=== PATIENT | female | born 1955 | race Caucasian/White ===

== ENCOUNTER 2018-03-17 21:29 | Inpatient (IN) | payer BC ==
[~2018-03-17] VITALS: Ht 177.8 cm; Wt 85.0 kg
--- NOTE | ~2018-03-17 | EKG ---
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
[2018-03-17 22:07] LABS: BASO % 0.3 % (0.0-1.0); HEMATOCRIT 44.4 % (37.0-47.0); HEMOGLOBIN 14.5 g/dl (12.0-16.0); LYMPH # 1.4 10*3/uL (1.3-4.4); LYMPH % 20.6 % (27.0-41.0); MEAN CELL VOLUME 99.1 fl (81.0-99.0); MEAN CORPUSCULAR HGB 32.4 pg (27.0-31.0); MEAN CORPUSCULAR HGB CONC 32.7 g/dl (33.0-37.0); MEAN PLATELET VOLUME 10.7 fl (9.6-12.3); MONO # 0.4 10*3/uL (0.1-1.0); MONO % 5.9 % (3.0-9.0); NEUT # 4.9 10*3/uL (2.3-7.9); NEUT % 72.9 % (47.0-73.0); PLATELET COUNT AUTOMATED 220 10*3/uL (130-400); RED BLOOD COUNT 4.48 10*6/uL (4.10-5.10); RED CELL DISTRI WIDTH 13.2 % (0-14.5); WHITE BLOOD COUNT 6.8 10*3/uL (4.8-10.8)
[2018-03-17 22:11] LABS: BILIRUBIN NEGATIVE (NEGATIVE); BLOOD TRACE-INTACT (NEGATIVE); CLARITY CLEAR (CLEAR); COLOR YELLOW (YELLOW); GLUCOSE NEGATIVE (NEGATIVE); KETONE NEGATIVE (NEGATIVE); LEUKO ESTERASE NEGATIVE (NEGATIVE); NITRITE NEGATIVE (NEGATIVE); SPECIFIC GRAVITY <= 1.005 (1.005-1.030); UROBILINOGEN 0.2 E.U./dl (0.2-1.0)
[2018-03-17 22:20] LABS: ALBUMIN 4.5 gm/dl (3.1-4.5); ALKALINE PHOSPHATASE 80 U/L (45-117); BUN 11 mg/dl (7-24); CHLORIDE 106 mmol/L (98-107); CREATININE 0.72 mg/dL (0.55-1.02); POTASSIUM 3.4 mmol/L (3.5-5.1); SGOT/AST 21 IU/L (3-35); SGPT/ALT 20 U/L (12-78); SODIUM 142 mmol/L (136-145); TOTAL PROTEIN 8.5 gm/dL (6.4-8.2)
[2018-03-17 22:26] LABS: URINE AMPHETAMINES < 1000 (1000ng/ml); URINE BARBITURATES < 200 (200ng/ml); URINE BENZODIAZEPINES < 200 (200ng/ml); URINE CANNABINOIDS (THC) < 50 (50ng/ml); URINE METHADONE < 300 (300ng/ml)
[2018-03-17 22:26] LABS: ACETAMINOPHEN (TYLENOL) < 2.0 ug/ml (10-30); ETHYL ALCOHOL < 3.0 mg/dl (<3)
[2018-03-17 22:29] LABS: URINE COCAINE < 300 (300ng/ml); URINE OPIATES < 300 (300ng/ml)
[2018-03-17 22:31] LABS: BACTERIA TRACE; URINE PHENCYCLIDINE < 25 (25ng/ml); WBC 0-2 wbc/hpf (0-5)
--- NOTE | 2018-03-17 23:27 | NUR ---
PATIENT REFUSES IV AT THIS TIME.
--- NOTE | 2018-03-18 00:11 | NUR ---
1 MG OF DILUADID ADMINISTERED. ADDITIONAL 0.5MG RETURNED TO PYXIS.
[2018-03-18 00:45] VITALS: BP 172/69
--- NOTE | 2018-03-18 00:45 | NUR ---
A 63, admitted to , under the services of DEV Turner DO with a diagnosis of OPIATE WITHDRAWAL. Chief complaint is OPIATE WITHDRAWAL. Patient arrived via wheel chair from ER. Monitor applied. Initial assessment completed. Vital signs taken and recorded. DEV TURNER DO notified of admission to the unit. Orders received. See assessment for past medical history, medications and allergies. Patient and/or family oriented to unit. [facility] visitation policy reviewed. Clothing/patient valuable form completed. RASHEL TOLENTINO
[2018-03-18] MEDS ORDERED: KLONOPIN1 M1 PO ×2 (02:09→08:42)
[2018-03-18] MEDS ORDERED: RESTORIL15 MG PO (02:09)
[2018-03-18] MEDS ORDERED: VICTOZA 2-0.6 MG/0.1 SQ (02:11)
[2018-03-18] MEDS ORDERED: TRAZODONE50 MG PO (02:11)
[2018-03-18] MEDS ORDERED: UNITHROID75 MCG PO (02:12)
--- NOTE | 2018-03-18 02:13 | NUR ---
MEDICATIONS REVIEWED WITH PATIENT. PATIENT UNSURE D/T HEADACHE. PHARMACY ENTERED. MEDS NEED TO BE VERIFIED WITH PATIENT PHARMACY IN AM OR WHEN PATIETN MORE ALERT.
--- NOTE | 2018-03-18 07:42 | NUR ---
REQUIP GIVEN FOR COMPLAINTS OF RESTLESS LEGS. WILL CONTINUE TO MONITOR AND REASSESS.
[2018-03-18 08:00] VITALS: BP 122/78
--- NOTE | 2018-03-18 08:22 | NUR ---
MOTRIN GIVEN FOR COMPLAINT OF 8 OUT OF 10 PAIN IN HEAD. WILL CONTINUE TO MONITOR AND REASSESS.
[2018-03-18 08:23] LABS: FREE T4 1.35 ng/dl (0.76-1.46)
[2018-03-18 08:29] LABS: THYROID STIM HORMONE (HS) 0.059 uIU/ml (0.358-4.75); TROPONIN I < 0.015 ng/ml (<0.045)
--- NOTE | 2018-03-18 08:30 | NUR ---
REQUIP EFFECTIVE FOR RESTLESS LEGS. PATIENT RESTING COMFORTABLY.
[2018-03-18] MEDS ORDERED: LEXAPRO5 M1 PO (08:44)
--- NOTE | 2018-03-18 09:00 | NUR ---
MOTRIN EFFECTIVE FOR HEADACHE. PT STATES HEADACHE IS GONE.
[2018-03-18 10:04] LABS: VITAMIN D, 25-HYDROXY 25.6 ng/mL (30-100)
[2018-03-18 12:00] VITALS: BP 155/82
--- NOTE | 2018-03-18 13:28 | NUR ---
TYLENOL GIVEN FOR BODY ACHES. WILL CONTINUE TO MONITOR AND REASSESS.
--- NOTE | 2018-03-18 14:15 | NUR ---
TYLENOL EFFECTIVE FOR BODY ACHES. PT RESTING COMFORTABLY.
[2018-03-18 16:00] VITALS: BP 123/69
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
[2018-03-18 20:00] VITALS: BP 173/87
--- NOTE | 2018-03-18 20:59 | NUR ---
PATIENT MEDICATED FOR MULTIPLE WITHDRAWAL COMPLAINTS AT THIS TIME PER DRS ORDERS. SEE EMAR. RN WILL CONTINUE TO MONITOR
--- NOTE | 2018-03-18 22:17 | NUR ---
PATIENT STATES EARLIER MEDICATION WAS EFFECTIVE
--- NOTE | 2018-03-18 23:05 | NUR ---
OBTAINED PATIENT FROM ROM. PATIENT IS RESTING IN BED, EYES CLOSED. NO DISTRESS NOTED, RESP ARE ERND ON ROOM AIR. BED LOCKED IN LOWEST POSITION, CALL LIGHT LEFT WITHIN REACH.
[2018-03-19] VITALS: BP 143/73
--- NOTE | 2018-03-19 | NUR ---
SLEEPING. CALL LIGHT WITHIN REACH.
--- NOTE | 2018-03-19 02:24 | NUR ---
PATIENT MEDICATED WITH TYLENOL FOR C/O BACK PAIN 08/30. WILL MONITOR.
--- NOTE | 2018-03-19 03:24 | NUR ---
TYLENOL SOMEWHAT EFFECTIVE PER PATIENT.
--- NOTE | 2018-03-19 05:49 | NUR ---
PATIENT MEDICATED FOR COMPLAINTS OF WITDRAWALS SYMPTOMS WITH PRNS AVAILABLE. WILL MONITOR.
--- NOTE | 2018-03-19 06:49 | NUR ---
PRN MEDICATIONS FOR WITHDRAWAL SYMPTOMS EFFECTIVE.
--- NOTE | 2018-03-19 09:50 | NUR ---
PT STATES SHE WOULD LIKE TYLENOL FOR C/O BACK PAIN OF 07/31. WILL CONT TO MONITOR. CALL LIGHT IN REACH.
--- NOTE | 2018-03-19 10:50 | NUR ---
PT STATES PAIN DECREASED TO 4/10 AFTER TYLENOL. WILL CONT TO MONITOR. CALL LIGHT IN REACH.
--- NOTE | 2018-03-19 11:15 | NUR ---
PT STATED SHE WANTED IV OUT BECAUSE IT WAS BOTHERING HER AND DIDN'T WANT ANOTHER ONE PUT BACK IN.
[2018-03-19 12:00] VITALS: BP 146/65
--- NOTE | 2018-03-19 14:43 | NUR ---
C/O FEELING RESTLESS. GIVEN REQUIP AND VISTARIL AT THIS TIME. WILL CONT TO MONITOR. CALL LIGHT IN REACH.
--- NOTE | 2018-03-19 15:42 | NUR ---
VISTARIL AND REQUIP EFF AT THIS TIME. WILL CONT TO MONITOR. CALL LIGHT IN REACH.
--- NOTE | 2018-03-19 15:48 | NUR ---
PT SCREEN COMPLETED AND PATIENT FOUND TO BE (I) WITH ALL FUNCTIONAL MOBILTY AND NO PT NEEDS IDENTIFIED AT THIS TIME. THANK YOU FOR REFERRAL CATARINO BERGERON PT
[2018-03-19 16:00] VITALS: BP 133/78
--- NOTE | 2018-03-19 18:23 | NUR ---
C/O HEADACHE. TYLENOL GIVEN AT THIS TIME. WILL CONT TO MONITOR. CALL LIGHT IN REACH.
--- NOTE | 2018-03-19 18:58 | NUR ---
PT ASKED IF SHE CAN HAVE TWO TYLENOL INSTEAD OF ONE BECAUSE ONE DOESN'T WORK WELL. SPOKE TO DR SOTELO AND HE INCREASED THE DOSE TO 650MG
--- NOTE | 2018-03-19 19:25 | NUR ---
BEDSIDE REPORT GIVEN BY LEVAR YANG. PATIENT A&O PLEASANT. REQUESTED PRN MEDICATION FOP WITHDRAWAL AND ANXIETY. NO OTHER VOICED COMPLAINTS. CALL LIGHT IN REACH.
[2018-03-19 19:43] VITALS: BP 132/76
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
[2018-03-19 20:00] VITALS: BP 159/84
--- NOTE | 2018-03-19 20:45 | NUR ---
PRNs FOR WITHDRAWAL SYMPTOMS WERE EFFECTIVE
[2018-03-20] VITALS: BP 129/67
--- NOTE | 2018-03-20 00:53 | NUR ---
PT MEDICATED PRE REQUEST FOR IMSOMNIA AND BACK PAIN.
--- NOTE | 2018-03-20 01:53 | NUR ---
MOTRIN SOMEWHAT EFFECTIVE FOR BACK PAIN. DESYREL INEFFECTIVE, PATIENT IS AWAKE AND ALERT. C/O RESTLESSNESS. CALL LIGHT LEFT WITHIN REACH.
--- NOTE | 2018-03-20 03:02 | NUR ---
PATIENT MEDICATED WITH REQUIP FOR C/O RESTLESSNESS. WILL MONITOR.
--- NOTE | 2018-03-20 04:02 | NUR ---
REQUIEP EFFECTIVE FOR RESTLESSNESS.
--- NOTE | 2018-03-20 05:32 | NUR ---
PRNs AVAILABLE PROVIDED FOR PATIENT C/O WITHDRAWAL SYMPTOMS. WILL MONITOR EFECTIVENESS.
[2018-03-20 06:38] LABS: BASO % 0.7 % (0.0-1.0); EOS % 0.7 % (1.0-4.0); HEMATOCRIT 40.5 % (37.0-47.0); HEMOGLOBIN 13.2 g/dl (12.0-16.0); LYMPH # 2.1 10*3/uL (1.3-4.4); LYMPH % 37.4 % (27.0-41.0); MEAN CELL VOLUME 97.6 fl (81.0-99.0); MEAN CORPUSCULAR HGB 31.8 pg (27.0-31.0); MEAN CORPUSCULAR HGB CONC 32.6 g/dl (33.0-37.0); MEAN PLATELET VOLUME 11.1 fl (9.6-12.3); MONO # 0.7 10*3/uL (0.1-1.0); MONO % 12.3 % (3.0-9.0); NEUT # 2.7 10*3/uL (2.3-7.9); NEUT % 48.7 % (47.0-73.0); PLATELET COUNT AUTOMATED 187 10*3/uL (130-400); RED BLOOD COUNT 4.15 10*6/uL (4.10-5.10); RED CELL DISTRI WIDTH 12.9 % (0-14.5); WHITE BLOOD COUNT 5.5 10*3/uL (4.8-10.8)
[2018-03-20 06:46] LABS: CREATININE 0.64 mg/dL (0.55-1.02)
--- NOTE | 2018-03-20 08:58 | NUR ---
Occupational Therapy referral received and offered to patient this date. Patient insists she is independent in all ADLs and mobility and does not require OT evaluation. Patient resting comfortably in bed with no pain eating breakfast. Discharge OT referral. Thank you. Elvis España OTR/aysha
--- NOTE | 2018-03-20 09:53 | NUR ---
MOTRIN AND ZOFRAN GIVEN AT THIS TIME FOR NAUSEA AND BACK PAIN OF 6/10. WILL CONT TO MONITOR. CALL LIGHT IN REACH.
--- NOTE | 2018-03-20 11:31 | NUR ---
PLACED CALL TO [employer] REQUESTED TO HAVE MORPHINE PUMP TURNED OFF. THEY STATED THEY WILL GIVE THE INFORMATION I PROVIDED TO A REP AND THEY WILL GET BACK TO ME
--- NOTE | 2018-03-20 11:53 | NUR ---
BENTYL GIVEN FOR C/O ABDOMINAL CRAMPS. WILL CONT TO MONITOR. CALL LIGHT IN REACH.
[2018-03-20 12:00] VITALS: BP 137/74
--- NOTE | 2018-03-20 12:53 | NUR ---
HARI EFF PER PT. WILL CONT TO MONITOR. CALL LIGHT IN REACH.
--- NOTE | 2018-03-20 12:57 | NUR ---
PATIENT MEETS [facility]. PATIENT WOULD LIKE TO FOLLOW UP WITH HER PRIMARY CARE DOCTOR TO MONITOR HER SYMPTOMS AND SHE WOULD ALSO LIKE TO FOLLOW UP WITH [facility] TO REMOVE HER MORPHINE PUMP. SUSY SIMON MS SUPERVISOR ROAD ADMINISTRATOR
--- NOTE | 2018-03-20 13:13 | NUR ---
SPOKE TO JAQUI FROM [facility] AND HE STATED THAT SOMEONE WILL BE HERE TOMORROW MORNING TO TURN OFF THE MORPHINE PUMP. HE HAD ME CLARIFY WITH THE PT THAT SHE DEFINITELY WANTED IT TURNED OFF SINCE IT WILL BE A PERMANENT THING. I DID SPEAK WITH THE PATIENT AND SHE STATED SHE WAS AWARE THAT IT WOULD BE PERMANENT. ACRLOS CHENG DIRECTOR OF CATEGORY MANAGEMENT AWARE.
--- NOTE | 2018-03-20 14:46 | NUR ---
C/O PAIN TO BACK AND NECK OF 610. REQUESTED TYLENOL AND ROBAXIN. WILL CONT TO MONITOR. CALL LIGHT IN REACH.
--- NOTE | 2018-03-20 15:46 | NUR ---
ROBAXIN AND TYLENOL EFF. WILL CONT TO MONITOR. CALL LIGHT IN REACH.
[2018-03-20 16:00] VITALS: BP 142/78
[2018-03-20 20:00] VITALS: BP 141/70
--- NOTE | 2018-03-20 20:47 | NUR ---
SCHEDULED SL SUBUTEX AND PO KLONOPIN ADMINISTERED AT THIS TIME PER ORDER. WILL MONITOR EFFECTIVENESS. CALL LIGHT LEFT IN REACH.
--- NOTE | 2018-03-20 21:33 | NUR ---
PATIENT REQUESTED AND RECEIVED PO MOTRIN FOR C/O NECK/BACK PAIN RATED 10 AND PO SENOKOT FOR C/O CONSTIPATION WITH NO BM SINCE Tuesday03/17/18 PER PT. WILL MONITOR EFFECTIVENESS. CALL LIGHT LEFT IN REACH.
[2018-03-21] VITALS: BP 126/65
[2018-03-21 04:00] VITALS: BP 140/73
[2018-03-21 08:00] VITALS: BP 126/59
--- NOTE | 2018-03-21 09:38 | NUR ---
ANA FROM [employer] HERE TO SEE PT FOR MORPHINE PUMP. TALKED WITH MICHELLE WHITMAN. WILL BE IN TO MEET HIM AND DISCUSS OPTIONS WITH THE PT TOGETHER.
--- NOTE | 2018-03-21 10:05 | NUR ---
CARLOS CHENG IN TO SEE PT WITH THIS NURSE. PT AGREES TO HAVE THE MORPHINE PUMP SILENCED AND NOT SHUT OFF AT THIS TIME. PLAN WAS DISCUSSED WITH TREVIN FROM [employer]. HAMIDA IN WITH PT AT THIS TIME.
[2018-03-21] MEDS ORDERED: ROPINIROLE HYD0.5 MG PO (11:29)
[2018-03-21] MEDS ORDERED: DICYCLOMINE HCL20 MG PO (11:29)
[2018-03-21] MEDS ORDERED: METHOCARBAMOL750 M1 PO (11:29)
[2018-03-21] MEDS ORDERED: THERA TABLET400 MCG PO (11:29)
[2018-03-21] MEDS ORDERED: MOTRIN 600 MG E4 TAB PO (11:29)
[2018-03-21] MEDS ORDERED: VITAMIN D32000 UNI1 PO (11:29)
--- NOTE | 2018-03-21 12:52 | NUR ---
Discharge instructions reviewed with patient/family. Patient receptive and verbalizes understanding. Follow-up care arranged. Written instructions given to patient/family. ANDIE HINOJOSA
== END 2018-03-21 12:55 | disposition home or self-care (01) | DRG 897 ==
LOC: ED 21:29 → 5E 03-18 00:11 → EDHOLD 03-18 00:11 → 5E 03-18 00:36
PROVIDERS: Emergency Medicine Emergency Medical Services; Internal Medicine; ADMIT Emergency Medicine
DX: F11.23 Opioid dependence with withdrawal (principal); E11.65 Type 2 diabetes mellitus with hyperglycemia; E87.6 Hypokalemia; G89.29 Other chronic pain; M54.9 Dorsalgia, unspecified; E03.9 Hypothyroidism, unspecified; J44.9 Chronic obstructive pulmonary disease, unspecified; Z87.891 Personal history of nicotine dependence; F41.9 Anxiety disorder, unspecified; M19.90 Unspecified osteoarthritis, unspecified site; E05.90 Thyrotoxicosis, unspecified without thyrotoxic crisis or storm; Z90.710 Acquired absence of both cervix and uterus; Z83.6 Family history of other diseases of the respiratory system; Z82.49 Family history of ischemic heart disease and other diseases of the circulatory system; G47.00 Insomnia, unspecified; Z79.4 Long term (current) use of insulin